=== PATIENT | female | born 1975 | race Caucasian/White ===

== ENCOUNTER 2018-05-16 09:42 | Observation (INO) | payer BC ==
[2018-05-16] MEDS ORDERED: NS 0.9% 1000 ML** 1,000 ML IV ONE (09:53)
[2018-05-16] MEDS ORDERED: fentaNYL* 50 MCG/ML 2 ML VIAL (100 MCG VIAL) IV SLOW PU ONE (09:53)
[2018-05-16] MEDS ORDERED: diPHENhydraMINE IV* 50 MG/ML 1 ml VIAL (BENADRYL) IV ONE (09:54)
--- NOTE | 2018-05-16 10:03 | ED ---
GI/ HPI - HPI Summary HPI Summary: Pt is a 42 y/o F presenting to the ED with a chief complaint of lower extremity pain. The pt is coming from a doctors appointment where she was found to have kidney stones in her R ureter. She reports fever, nausea, vomiting, and pain that is temporarily made better by movement. She thought she had the flu this morning, and when she was at her appointment they took an average of three temperatures at 100.1. She has a hx of HTN, GERD, and medullary spongey kidneys. - History of Current Complaint Chief Complaint: EDFlankPain Time Seen by Provider: 05/16/18 09:47 Stated Complaint: KIDNEY PAIN PER PT Hx Obtained From: Patient Onset/Duration: Started Weeks Ago, Still Present Timing: Constant, Lasting Weeks Severity: Moderate Current Severity: Severe Pain Intensity: 8 Location of Pain: Other - "kidneys" Pain Characteristics: Cramping Associated Signs and Symptoms: Positive: Back Pain - kidneys, Nausea, Vomiting, Fever Aggravating Factor(s): Nothing Alleviating Factor(s): Movement - Allergy/Home Medications Allergies/Adverse Reactions: Allergies Allergy/AdvReac Type Severity Reaction Status Date / Time No Known Allergies Allergy Verified 10/25/15 11:35 PMH/Surg Hx/FS Hx/Imm Hx Previously Healthy: No Endocrine/Hematology History: Denies: Hx Anticoagulant Therapy, Hx Diabetes, Hx Thyroid Disease Cardiovascular History: Reports: Hx Hypertension Denies: Hx Angina, Hx Congestive Heart Failure, Hx Coronary Artery Disease, Hx Hypercholesterolemia, Hx Myocardial Infarction, Hx Pacemaker/ICD, Hx Valvular Heart Disease Respiratory History: Denies: Hx Asthma, Hx Chronic Obstructive Pulmonary Disease (COPD) History: Reports: Hx Kidney Stones, Other Problems/Disorders - medullary spongey kidneys Neurological History: Reports: Hx Migraine Denies: Hx Dementia, Hx Seizures Psychiatric History: Reports: Hx Substance Abuse - smoke - Surgical History Surgery Procedure, Year, and Place: tubal. multiple lithotripsy for kidney stones. root canal - Immunization History Date of Influenza Vaccine: Nov 2017 Immunizations Up to Date: Yes Infectious Disease History: No Infectious Disease History: Denies: Hx Hepatitis, Hx Human Immunodeficiency Virus (HIV), Traveled Outside the [place] in Last 30 Days - Family History Known Family History: Positive: Hypertension, Other - TIA and no aneurism - Social History Alcohol Use: Weekly Hx Substance Use: No Substance Use Type: Reports: None Hx Tobacco Use: Yes Smoking Status (MU): Light Every Day Tobacco Smoker Review of Systems Positive: Fever Positive: Vomiting, Nausea Positive: Myalgia All Other Systems Reviewed And Are Negative: Yes Physical Exam - Summary Physical Exam Summary: GENERAL: Patient is a well-developed and nourished female who is lying in the stretcher. She appears uncomfortable secondary to pain. Patient is not in any acute respiratory distress. HEAD AND FACE: Normocephalic EYES: PERRLA, EOMI x 2. EARS: Hearing grossly intact. MOUTH: Oropharynx within normal limits. NECK: Supple, trachea is midline, no adenopathy, no JVD, no carotid bruit. CHEST: Symmetric, no tenderness at palpation LUNGS: Clear to auscultation bilaterally. No wheezing or crackles. CVS: Regular rate and rhythm, S1 and S2 present, no murmurs or gallops appreciated. ABDOMEN: Soft, non-tender. Bowel sounds are normal. No abdominal abnormal pulsations. EXTREMITIES: Full ROM in all major joints, no edema, no cyanosis or clubbing. NEURO: Alert and oriented x 3. No acute neurological deficits. Speech is normal and follows commands. SKIN: Dry and warm Triage Information Reviewed: Yes Vital Signs On Initial Exam: Initial Vitals Temp Pulse Resp BP Pulse Ox 98.1 F 99 20 168/117 100 05/16/18 09:42 05/16/18 09:42 05/16/18 09:42 05/16/18 09:42 05/16/18 09:42 Vital Signs Reviewed: Yes Diagnostics - Vital Signs Vital Signs Temp Pulse Resp BP Pulse Ox 05/16/18 09:42 98.1 F 99 20 168/117 100 - Laboratory Lab Statement: Any lab studies that have been ordered have been reviewed, and results considered in the medical decision making process. - Radiology Abd x-ray Radiology Interpretation Completed By: Radiologist Summary of Radiographic Findings: Calcifications overlying upper pole right kidney lower pole left kidney as well as the right renal hilum and likely right proximal ureter. ED physician has reviewed this report. GIGU Course/Dx - Course Course Of Treatment: Pt is a 42 y/o F presenting to the ED with a chief complaint of lower extremity pain. The pt is coming from a doctors appointment where she was found to have kidney stones in her R ureter. She reports fever, nausea, vomiting, and pain that is temporarily made better by movement. Spoke with Dr. Glass who requested the pt get a repeat urine sample and test her KUB. He would like the patient to be admitted. The CT abd/pelv from her doctors office showed the followin. Multiple right ureteral stones measuring up to 1cm as above with moderate right hydronephrosis. 2. Bilateral nephrolithiasis. Upon examination, the pt is uncomfortable secondary to pain, o/w normal. Abd x- ray shows calcifications overlying upper pole right kidney lower pole left kidney as well as the right renal hilum and likely right proximal ureter. As of 1009, the pt is accepted for admission under Dr. Canas. - Diagnoses Provider Diagnoses: Kidney calculi Discharge - Sign-Out/Discharge Documenting (check all that apply): Patient Departure - Discharge Plan Condition: Stable Disposition: ADMITTED TO [facility] - Billing Disposition and Condition Condition: STABLE Disposition: Admitted to [facility] - Attestation Statements Document Initiated by Scribe: Yes Documenting Scribe: Leann Valdes Provider For Whom Kingae is Documenting (Include Credential): Hector Madrigal MD. Scribe Attestation: ILeann, scribed for Hector Madrigal MD. on 05/16/18 at 1321. Scribe Documentation Reviewed: Yes Provider Attestation: The documentation as recorded by the scribe, Leann Valdes accurately reflects the service I personally performed and the decisions made by , Jonathon Madrigal MD. Status of Scribe Document: Viewed Consult Consult: 101 - Spoke with Dr. Canas who accepts the patient for admission.
[2018-05-16] MEDS ORDERED: Gentamicin ADULT (*) 160 MG in NS 0.9% 100 ML* 100 ML IVPB ONE (10:20)
[2018-05-16 10:47] LABS: Urine Appearance Cloudy; Urine Bacteria Absent (Absent); Urine Bilirubin Negative (Negative); Urine Blood 3+ (Negative); Urine Color Yellow; Urine Glucose Negative (Negative); Urine Ketones Negative (Negative); Urine Nitrite Negative (Negative); Urine Protein Negative (Negative); Urine Red Blood Cell 3+(>10/hpf) (Absent); Urine Specific Gravity 1.013 (1.010-1.030); Urine Squamous Epithelial Cell Present (Absent); Urine Urobilinogen Negative (Negative); Urine White Blood Cell 2+(11-20/hpf) (Absent)
[2018-05-16] MEDS ORDERED: Lactated Ringers 1000 ML Bag* 1,000 ML IV SCH ×2 (11:00→12:00)
[2018-05-16] MEDS ORDERED: HYDROmorphone INJ1* 1 MG/ML SYRINGE IV SLOW PU ONE (11:02)
[2018-05-16] MEDS ORDERED: Buffered Lidocaine 1% SYRIN* 1 ML/SYRINGE INTRADERM ONE (11:15)
[2018-05-16] MEDS ORDERED: Famotidine TAB* 20 MG PO ONE (11:15)
[2018-05-16] MEDS ORDERED: Acetaminophen TAB* 325 MG PO PRN (11:19)
[2018-05-16] MEDS ORDERED: Ondansetron INJ* 2 MG/ML VIAL IV PRN (11:19)
[2018-05-16] MEDS ORDERED: HYDROmorphone INJ* 0.5 MG/0.5 ML SYRINGE IV SLOW PU PRN (11:22)
[2018-05-16] MEDS ORDERED: Propofol* 10 MG/ML 20 ML BTL ONE ×2 (11:39→11:42)
[2018-05-16] MEDS ORDERED: Lidocaine 2% PF * 5 ML VIAL ONE ×2 (11:40→12:07)
[2018-05-16] MEDS ORDERED: Midazolam* 1 MG/ML 2 ML VIAL (2 MG) ONE (11:40)
[2018-05-16] MEDS ORDERED: fentaNYL* 50 MCG/ML 2 ML VIAL (100 MCG VIAL) ONE (11:40)
[2018-05-16] MEDS ORDERED: Iohexol 180 (CONTRAST) 10 ML SDV IV ONE (11:53)
[2018-05-16] MEDS ORDERED: Chloroprocaine 2%* 20 ML VIAL ONE (12:07)
[2018-05-16] MEDS ORDERED: Naloxone* 0.4 MG/ML 1 ML VIAL IV PRN (12:32)
[2018-05-16] MEDS ORDERED: Ondansetron ODT TAB* 4 MG PO PRN (12:32)
[2018-05-16] MEDS ORDERED: oxyCODONE TAB* 5 MG TAB PO PRN (12:32)
[2018-05-16] MEDS ORDERED: fentaNYL* 50 MCG/ML 2 ML VIAL (100 MCG VIAL) IV PRN (12:32)
[2018-05-16 14:13] VITALS: BP 135/86
--- NOTE | 2018-05-16 16:50 | HP ---
CC: Dr. Lazaro Perez; Dr. Jesse Powers * ADMISSION HISTORY AND PHYSICAL: DATE OF ADMISSION: 05/16/18 PRIMARY CARE PROVIDER: Dr. Lazaro Perez. MY ATTENDING WHILE IN THE HOSPITAL: Dr. Radha Canas.* (DICTATED BY GENET TAPIA) CONSULTING UROLOGIST: Dr. Jesse Powers. CHIEF COMPLAINT: Muscle aches, malaise, fevers and chills x2 days. HISTORY OF PRESENT ILLNESS: Ms. Smith is a 42-year-old female with a past medical history significant for medullary sponge kidney and recurrent nephrolithiasis, hypertension, who presented this morning to the [facility] Emergency Department where she worked with 2 days of muscle aches, fevers and chills. The patient there received ceftriaxone and Toradol, which improved her pain and had a CT scan of her abdomen, which showed multiple right renal stones with moderate right hydronephrosis. The patient has been having pain consistent with her previous stones including abdominal pain and cramping for the past month. The patient previously went for medical care, got Toradol and this entirely relieved her pain. The patient has not had any blood in her urine or any dysuria. The patient describes her pain as all over as opposed to being localized to her abdomen or back. The patient has had 4 previous lithotripsies with stents placed. The patient has been having palpitations, which is worse with pain and is chronic. The patient has occasional dizziness on standing. The patient had no documented fevers, but again has been having fevers and chills as well as nausea and vomiting. The patient denies abdominal pain, chest pain, or shortness of breath. The patient was referred to [facility] Emergency Department due to her familiarity with Dr. Powers for presumed stent placement and we were asked to evaluate the patient for admission to the hospital. PAST MEDICAL HISTORY: 1. Hypertension. 2. GERD. 3. Medullary sponge kidney. 4. Palpitations due to SVT, recurrent nephrolithiasis. 5. History of Lyme disease. PAST SURGICAL HISTORY: 1. Multiple renal stents. 2. Tubal ligation. MEDICATIONS: 1. Metoprolol succinate 50 mg p.o. daily. 2. Norvasc 40 mg p.o. daily. 3. Prilosec 20 mg p.o. daily. 4. Multivitamin 1 tablet p.o. daily. 5. Vitamin D 4000 units p.o. daily. ALLERGIES: No known drug allergies. FAMILY HISTORY: The patient's mother and father both have heart disease and diabetes. SOCIAL HISTORY: The patient is a light tobacco smoker and still smokes. The patient occasionally uses alcohol and denies illicit drug use. 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 The patient has a male partner and her surrogate decision maker will be her mother, Walter Penaloza. REVIEW OF SYSTEMS: A 14-point review of systems was reviewed with the patient and is negative except as above in the HPI. PHYSICAL EXAMINATION GENERAL: The patient is a 42-year-old female who appears stated age and is sitting in bed in moderate distress from pain. VITAL SIGNS: At the time of evaluation, temperature 98.1, pulse rate 99, respiratory rate 20, oxygen saturation 100% on room air, blood pressure 160/117. HEENT: Head is normocephalic, atraumatic. Sclerae anicteric. No conjunctival injection. Nasal mucosa moist. Oral mucosa moist. No pharyngeal erythema, discharge, or exudate. NECK: Supple, nontender. No lymphadenopathy. No carotid bruits auscultated. No JVD. RESPIRATORY: Clear to auscultation bilaterally. No wheezes, rales, rhonchi. Good air exchange bilaterally. CARDIAC: Regular rate and rhythm. No clicks, murmurs, gallops, or rubs. Pulses 2+ in bilateral dorsalis pedis, posterior tibialis, and radial areas. ABDOMEN: Soft, nontender, nondistended. Bowel sounds present and normoactive in all 4 quadrants. No hepatosplenomegaly. No abdominal bruits auscultated. No hepatojugular reflux. GENITOURINARY: Right Sided flank and CVA tenderness. NEUROLOGIC: Cranial nerves II through XII intact. No focal deficits. Alert and oriented x3. PSYCHIATRIC: Pleasant and cooperative. DIAGNOSTIC STUDIES/LAB DATA: Laboratory data from [facility]: White blood cell count 11.3, hemoglobin 12.8, platelet count 304. Sodium 138, potassium 3.8, chloride 101, carbon dioxide 25, anion gap 12, glucose 125, bilirubin 0.4, BUN 21, creatinine 0.9. Calcium 9.0, alkaline phosphatase 70, amylase 30, lipase 26. Protein 7.4, albumin 4.2. Urine shows hazy, positive blood, positive leukocyte esterase, positive white blood cells and red blood cells, and positive bacteria. Influenza A and B negative. Studies: The CT read as multiple right ureter stones measuring up to 1 cm and moderate right hydronephrosis, bilateral nephrolithiasis, 1 x 0.7 cm calculus in the right UPJ. ASSESSMENT AND PLAN: Impression: Ms. Smith is a 42-year-old female with past medical history significant for medullary sponge kidney, nephrolithiasis, and supraventricular tachycardia, who presents to the emergency department with symptoms consistent with the kidney stones complicated by a urinary tract infection. The patient received ceftriaxone and a CT at outside hospital and is referred for stent placement with Dr. Powers, who has done her previous stent placements. 1. Right-sided multiple nephrolithiasis. The patient has CT evidence of nephrolithiasis and pain consistent with this. The patient's pain has been controlled with Dilaudid. The patient received ceftriaxone at outside hospital and gentamicin in this hospital. The patient will be continued on ceftriaxone if she remains inpatient, but if the patient is able to be discharged after this procedure, the patient will be continued on appropriate oral antibiotic therapy. The patient will be taken to the OR this morning with Dr. Powers for stent placement. The patient will likely need lithotripsy after that given the size of the patient's ureteral stone. The patient received fluids both at the outside hospital and here, these will be continued. We will continue the patient's metoprolol succinate perioperatively. Her blood pressure is currently within normal limits. The patient is not septic. We will hold the patient's Norvasc. 2. Hypertension. Continue metoprolol, hold Norvasc as well. 3. Medullary sponge kidney. The patient has a moderately elevated creatinine at 0.9, possible medullary sponge kidney. Given the patient's hydronephrosis, we will try to avoid nephrotoxins. We will not continue the patient's gentamicin at this time unless absolutely indicated. We will adequately hydrate the patient and avoid Toradol for pain control. 4. History of supraventricular tachycardia. The patient is borderline tachycardic, likely related to her pain. The patient was previously evaluated with cardiac stress test and follows with cardiac nurse practitioner. She should follow up again outpatient. This does not pose a significant risk with minor surgery. 5. DVT prophylaxis. The patient low risk. SCDs in the postoperative period and encourage ambulation. 6. Gastroesophageal reflux disease. Continue Prilosec. The patient is given famotidine. 7. FEN. The patient will be n.p.o. for this procedure and get fluids per postoperative protocol. 8. Disposition. The patient admitted to observation. The patient may be able to be discharged from the PACU depending on her clinical state. TIME SPENT: Approximately 45 minutes spent on the admission of this patient, 20 of which was spent in [id number] with the patient obtaining history and physical and discussion of treatment plan. Plan was discussed with my attending, Dr. Radha Canas; she is in agreement. GENET TAPIA [id number]/CPS #: [id number] MTDD
[2018-05-16] MEDS ORDERED: Metoprolol Succinate XL TAB* 50 MG PO SCH (21:00)
--- NOTE | 2018-05-16 22:18 | OP ---
CC: Dr. Lazaro Perez * DATE OF OPERATION: 05/16/18 - ROOM #335 DATE OF : 71 SURGEON: Checo Glass MD ANESTHESIOLOGIST: Dr. Scott. ANESTHESIA: Spinal. PRE-OP DIAGNOSES: 1. Right hydronephrosis. 2. Right ureteral calculi. 3. Right bilateral renal calculi. POST-OP DIAGNOSIS: OPERATIVE PROCEDURE: Cystoscopy right retrograde pyelogram, right ureteral calculus manipulation and right stent insertion. COMPLICATIONS: None. POSTOPERATIVE CONDITION: Stable. STENT USED: 8-Brazilian stent right ureter. OPERATIVE FINDINGS: Right hydronephrosis. INDICATIONS: Merissa Smith is a 42-year-old lady with a history of recurrent renal calculi. She had been earlier worked up at [facility] and a CT scan had revealed moderate right hydronephrosis with a 1 cm calculus at the right ureteropelvic junction and a 5 mm calculus in the right proximal ureter and an additional 3 mm calculus in the area of the right renal pelvis. In addition, she also has a left renal calculus. She is being brought in for urgent right stent insertion and to be followed in the near future by lithotripsy. DESCRIPTION OF PROCEDURE: After induction of spinal anesthesia, the patient was placed in dorsal lithotomy position. Sequential compression devices were in place and functioning. Initial cystoscopy revealed mild chronic inflammatory changes in the bladder from prior infections. There was no evidence of any suspicious bladder lesions. Right retrograde pyelogram revealed right hydronephrosis. An open-ended catheter was advanced under fluoroscopic monitoring and the calculus at the ureteropelvic junction was carefully manipulated proximally. Once this was done, urine could be seen draining freely from the right kidney into the bladder. An 8-Brazilian stent was introduced and positioned under fluoroscopy with good proximal and distal positioning obtained. A Greene catheter was placed for temporary bladder drainage. The patient tolerated the procedure satisfactorily and was transferred back to the recovery area in stable condition. [id number]/CPS #: [id number] MTDD
--- NOTE | 2018-05-16 23:40 | DS ---
CC: Dr. Lazaro Perez; Dr. Checo Glass, Urology * DISCHARGE SUMMARY: DATE OF ADMISSION: 05/16/18 DATE OF DISCHARGE: PRIMARY CARE PROVIDER: Dr. Lazaro Perez. MY ATTENDING WHILE IN THE HOSPITAL: Dr. Radha Canas.* (DICTATED BY GENET TAPIA) PRIMARY DISCHARGE DIAGNOSES: 1. Right-sided nephrolithiasis with hydronephrosis, status post stenting. 2. Urinary tract infection. SECONDARY DISCHARGE DIAGNOSES: 1. High blood pressure. 2. Gastroesophageal reflux disease. 3. Medullary sponge kidney. 4. History of supraventricular tachycardia. 5. History of Lyme disease. STUDIES DONE WHILE IN THE HOSPITAL: 1. Abdomen x-ray from 05/16/18 read as calcifications overlying the right upper pole of kidney, lower pole of left kidney, as well as right renal hilum, likely proximal right ureter. 2. Retrograde pyelogram read as placement of right ureteral stent. MEDICATIONS AT DISCHARGE: 1. Troy-3 DHA EPA fish oil 1 tab p.o. daily. 2. Turmeric 500 mg p.o. daily . 3. He used to take CoQ10 200 mg p.o. daily. 4. Multivitamin 1 tab p.o. daily. 5. Omeprazole 20 mg p.o. daily. 6. Metoprolol succinate 50 mg p.o. at bedtime. 7. Amlodipine 5 mg p.o. daily. 8. Valacyclovir 1 mg p.o. p.r.n. 9. Magnesium oxide 500 mg p.o. daily. 10. Clobetasol 50 mg p.o. topical as needed. 11. Tylenol 650 mg p.o. q.6 hours as needed. 12. Ciprofloxacin 750 mg p.o. b.i.d. 13. Zofran 4 mg p.o. q.6 hours as needed. 14. Oxycodone 5 mg p.o. q.6 hours as needed. New medications at discharge: 1. Tylenol. 2. Ciprofloxacin. 3. Zofran. 4. Oxycodone. HOSPITAL COURSE: This is a brief summary of the patient's presentation. For more details, please refer to the history and physical from this author early in the day on 05/16/18. In brief, the patient is a 42-year-old white female with past medical history significant for above, who had approximately 1 month of intermittent flank pain concerning to her for a renal stone that she feels at some point she passed. The patient, however, 2 days before admission began to have muscle aches, malaise, fevers, and chills. The patient went to [place] [facility] and had a CT of her abdomen which showed nephrolithiasis and hydronephrosis. The patient was referred to the [facility] Emergency Department due to her familiarity with Dr. Checo Glass. She was taken from the emergency department to the OR for right-sided stent placement with resolution of her obstruction. The patient in the PACU felt well with pain in her right flank consistent with previous stent placement. The patient had no pus behind her stone. The patient had no vital sign abnormalities. No fevers. No tachycardia. The patient deemed stable for discharge by her urologist and was discharged from the PACU on 05/16/18. DISCHARGE PLAN: The patient will be discharged to home. The patient will have oxycodone, Zofran ODT, as well as ciprofloxacin for a total of 6 more days. The patient received ceftriaxone and gentamicin on 05/16/18. The patient to start her ciprofloxacin on 05/17/18. The patient will follow up with her primary care provider in 1 week for general medical management and to ensure continued improvement of her symptoms. The patient should follow up with Dr. Glass in 3 weeks or as scheduled for lithotripsy. The patient to return to the hospital for high fevers, chest pain, shortness of breath, passing out, or other alarming symptoms. TIME SPENT: Approximately 30 minutes was spent on the discharge of this patient , 15 of which was spent [id number] with the patient obtaining history and physical and discussing treatment plan. Plan was discussed with my attending, Dr. Radha Canas, and she is in agreement. GENET TAPIA [id number]/CPS #: [id number] MTDD
[2018-05-17] MEDS ORDERED: cefTRIAXone(*) 1 GM in NS 0.9% 50 ML* 50 ML IVPB SCH (06:00)
== END 2018-05-16 14:30 | disposition home or self-care (01) ==
LOC: ED 09:42 → SSU 11:19
PROVIDERS: ADMIT Internal Medicine; ATTEND Internal Medicine
DX: N13.2 Hydronephrosis with renal and ureteral calculous obstruction (principal); N39.0 Urinary tract infection, site not specified; I10 Essential (primary) hypertension; K21.9 Gastro-esophageal reflux disease without esophagitis; Q61.5 Medullary cystic kidney; I47.1 Supraventricular tachycardia; Z86.19 Personal history of other infectious and parasitic diseases; M54.9 Dorsalgia, unspecified; F17.210 Nicotine dependence, cigarettes, uncomplicated
CPT/HCPCS: 74018; 74420; 81003; 81015; 87086; 96374; 96375; 99283; C1876; G0378; J0696; J1170; J1200; J1580; J2250; J2400; J2704; J3010

== ENCOUNTER 2018-05-31 11:41 | Day surgery (SDC) | payer BC ==
[~2018-05-31 11:41] MED LIST: Acetaminophen TAB* 325 MG PO ONE; Buffered Lidocaine 1% SYRIN* 1 ML/SYRINGE INTRADERM ONE; Lactated Ringers 1000 ML Bag* 1,000 ML IV SCH; cefTRIAXone(*) 2 GM in NS 0.9% 100 ML* 100 ML IVPB ONE
[2018-05-31] MEDS ORDERED: Acetaminophen TAB* 325 MG ONE (12:37)
[2018-05-31] MEDS ORDERED: Ondansetron INJ* 2 MG/ML VIAL IV PRN (12:45)
[2018-05-31] MEDS ORDERED: PROCHLORPERAZINE INJ 5 MG/ML 2 ML VIAL IV PRN (12:45)
[2018-05-31] MEDS ORDERED: HYDROcodone/ACETAMIN 5-325 MG* 1 TAB PO PRN ×2 (12:45)
[2018-05-31] MEDS ORDERED: DiMENhydriNATE IV* 50 MG/ML VIAL IV PUSH PRN (12:45)
[2018-05-31] MEDS ORDERED: Naloxone* 0.4 MG/ML 1 ML VIAL IV PRN (12:45)
[2018-05-31] MEDS ORDERED: fentaNYL* 50 MCG/ML 2 ML VIAL (100 MCG VIAL) IV PRN (12:45)
[2018-05-31] MEDS ORDERED: Levalbuterol 0.63MG/3ML NEB* UNIT OF USE INH PRN (12:45)
[2018-05-31] MEDS ORDERED: fentaNYL* 50 MCG/ML 2 ML VIAL (100 MCG VIAL) ONE ×2 (12:56→14:31)
[2018-05-31] MEDS ORDERED: Midazolam* 1 MG/ML 2 ML VIAL (2 MG) ONE (12:56)
[2018-05-31] MEDS ORDERED: Famotidine IV* 10 MG/ML 2 ML (20 mg) ONE (13:30)
[2018-05-31] MEDS ORDERED: Lidocaine 2% PF * 5 ML VIAL ONE (14:08)
[2018-05-31] MEDS ORDERED: Dexamethasone IV* 4 MG/ML 1 ML (4 MG) ONE ×2 (14:08→14:30)
[2018-05-31] MEDS ORDERED: Propofol* 10 MG/ML 20 ML BTL ONE (14:08)
[2018-05-31] MEDS ORDERED: Scopolamine 1.5 mg* PATCH ONE (14:08)
[2018-05-31] MEDS ORDERED: Furosemide IV* 10 MG/ML 2 ML VIAL (20 MG) ONE (14:08)
[2018-05-31] MEDS ORDERED: Ondansetron INJ* 2 MG/ML VIAL ONE (14:08)
[2018-05-31] MEDS ORDERED: PROCHLORPERAZINE INJ 5 MG/ML 2 ML VIAL ONE (14:30)
[2018-05-31] MEDS ORDERED: oxyCODONE/Acetamin 5/325 MG* TAB ONE (14:49)
[2018-05-31 14:52] VITALS: BP 117/94
--- NOTE | 2018-05-31 21:37 | OP ---
DATE OF OPERATION: 05/31/18 - [facility] DATE OF : 71 SURGEON: Dr. Glass. ANESTHESIOLOGIST: Dr. Yancey. ANESTHESIA: General. PRE-OP DIAGNOSIS: Right renal calculi. POST-OP DIAGNOSIS: Right renal calculi. OPERATIVE PROCEDURE: Shockwave lithotripsy of right renal calculi. COMPLICATIONS: None. INDICATIONS: Merissa Smith is a 42-year-old lady who had undergone right stent insertion for an obstructing calculus in the right proximal ureter. In addition , she has other renal calculi noted on her preoperative CT scan and is now being brought in for shockwave lithotripsy. POSTOPERATIVE CONDITION: Stable. DESCRIPTION OF PROCEDURE: After induction of general anesthesia, the patient was placed on the lithotripsy table in supine position. The dominant calculus was in the mid to lower pole area of right kidney with an additional calculus adjacent to it. Shockwave lithotripsy was commenced at a rate of 60 shocks per minute. After initial 300 shocks, there was a pause in lithotripsy for several minutes in an effort to minimize any potential trauma to the kidney. Lithotripsy was then resumed and a total of 1200 shocks were used on the dominant calculus. Smaller calculus was localized with fluoroscopy and this was treated with approximately 600 shocks for a total of 1800 shocks during the treatment. The patient tolerated the procedure satisfactorily and was transferred back to the recovery area in stable condition. [id number]/CPS #: [id number] MTDD
== END 2018-05-31 15:39 | disposition home or self-care (01) ==
LOC: OR 11:41
PROVIDERS: ATTEND Urology
DX: N20.0 Calculus of kidney (principal); I10 Essential (primary) hypertension; Q61.5 Medullary cystic kidney; I47.1 Supraventricular tachycardia; K21.9 Gastro-esophageal reflux disease without esophagitis; Z72.0 Tobacco use
CPT/HCPCS: 74018; A9270-GY; J0696; J0780; J1100; J1940; J2250; J2405; J2704; J3010

== ENCOUNTER → 2018-09-22 07:25 | Day surgery (SDC) | payer BC ==
--- NOTE | 2018-09-20 10:25 | HP ---
CC: Dr. Perez; Dr. Glass ADMITTING HISTORY AND PHYSICAL: DATE OF ADMISSION: 09/22/18 ADMITTING DIAGNOSIS: Bilateral ureteral calculi. PLANNED PROCEDURE: Left ureteroscopy, possible laser and stent insertion, and possible right uretero scopy and stone removal. SURGEON: Dr. Glass. HISTORY OF PRESENT ILLNESS: Merissa Smith is a 42-year-old lady with a history of recurrent renal and ureteral calculi. She was recently evaluated and noted to have what appeared to be 2 calculi in the left distal ureter, one measuring about 8.4 mm and one measuring 9.8 mm. In addition, she has a 5-mm calculus in the right distal ureter. PAST MEDICAL HISTORY: Significant for: 1. Recurrent renal calculi. 2. Medullary sponge kidney. 3. Hypertension. 4. History of Lyme disease. 5. History of palpitations (SVT). 6. GERD. PAST SURGICAL HISTORY: Significant for tubal ligation and multiple procedures for stones including l ithotripsy and stent insertion and ureteroscopy. MEDICATIONS: On admission, include: 1. Metoprolol 50 mg daily. 2. Norvasc 40 mg daily. 3. Prilosec 20 mg daily. 4. Multivitamins. 5. Vitamin D daily. ALLERGIES: No known drug allergies. FAMILY HISTORY: Negative for stones. SOCIAL HISTORY: She is a longtime smoker and is still smoking. REVIEW OF SYSTEMS: She denies any chest pain or shortness of breath. There is no history of diabete s mellitus. PHYSICAL EXAMINATION GENERAL: Reveals a pleasant, uncomfortable appearing middle-aged lady. VITAL SIGNS: Blood pressure is 134/92, pulse 86 per minute and regular, temperature 97.1, oxygen sat uration 96% on room air. LUNGS: Clear bilaterally. CARDIOVASCULAR: Regular rate and rhythm. S1, S2. ABDOMEN: Soft with mild bilateral flank tenderness. IMPRESSION: A 42-year-old lady with 2 large calculi in the left distal ureter and a smaller calculu s in the right distal ureter. PLAN: Planned procedure is left ureteroscopy, possible laser and stent insertion and possible right ureteroscopy and stone removal (depending on whether or not she has passed the stone from the right s darryl prior to the scheduled surgery). [id number]/[facility] #: [id number]
[~2018-09-22 07:25] MED LIST changes: +Acetaminophen TAB* 325 MG ONE; +Bupivacaine 0.5% SDV PF* 30ML VIAL ONE; +Dexamethasone IV* 4 MG/ML 1 ML (4 MG) ONE; +DiMENhydriNATE IV* 50 MG/ML VIAL IV PUSH PRN; +Famotidine IV* 10 MG/ML 2 ML (20 mg) ONE; +Furosemide IV* 10 MG/ML 2 ML VIAL (20 MG) ONE; +Gabapentin CAP(*) 300 MG ONE; +Gabapentin CAP(*) 300 MG PO ONE; +Gentamicin ADULT (*) 160 MG in NS 0.9% 100 ML* 100 ML IVPB ONE; +HYDROcodone/ACETAMIN 5-325 MG* 1 TAB PO PRN; +Iohexol 180 (CONTRAST) 10 ML SDV IV ONE; +Lidocaine 2% PF * 5 ML VIAL ONE; +Midazolam* 1 MG/ML 2 ML VIAL (2 MG) ONE; +Naloxone* 0.4 MG/ML 1 ML VIAL IV PRN; +Ondansetron INJ* 2 MG/ML VIAL IV PRN; +Ondansetron INJ* 2 MG/ML VIAL ONE; +PROCHLORPERAZINE INJ 5 MG/ML 2 ML VIAL IV PRN; +PROCHLORPERAZINE INJ 5 MG/ML 2 ML VIAL ONE; +Propofol* 10 MG/ML 20 ML BTL ONE; +cefTRIAXone(*) 2 GM ADDV.VIAL IVPB ONE; -cefTRIAXone(*) 2 GM in NS 0.9% 100 ML* 100 ML IVPB ONE; +diPHENhydraMINE IV* 50 MG/ML 1 ml VIAL (BENADRYL) IV PRN; +diPHENhydraMINE IV* 50 MG/ML 1 ml VIAL (BENADRYL) ONE; +fentaNYL* 50 MCG/ML 2 ML VIAL (100 MCG VIAL) IV PRN; +fentaNYL* 50 MCG/ML 2 ML VIAL (100 MCG VIAL) ONE
--- NOTE | 2018-09-22 12:47 | OP ---
CC: Dr. Lazaro Perez * DATE OF OPERATION: 09/22/18 - [facility] DATE OF : 71 SURGEON: Checo Glass MD. PRE-OP DIAGNOSIS: Bilateral ureteral calculi. POST-OP DIAGNOSES: Right ureteral calculi and right hydronephrosis. OPERATIVE PROCEDURES: 1. Cystoscopy, left retrograde pyelogram, left ureteroscopy, and left pyeloscopy. 2. Right retrograde pyelogram, right ureteroscopy, and laser lithotripsy of right ureteral calculi and removal of calculi fragments, and right stent insertion. STENT USED: A 7-Yemeni stent, right ureter. INDICATIONS: Merissa Smith is a 42-year-old lady with recurrent bilateral renal and ureteral calculi who was recently noted to have bilateral ureteral calculi. OPERATIVE FINDINGS: 1. No calculi seen in left distal, mid or proximal ureter or left renal pelvis. 2. Two calculi, right distal ureter including a fairly large; approximately 1 cm; calculus with surrounding edema and inflammation. POSTOPERATIVE CONDITION: Stable. DESCRIPTION OF PROCEDURE: After induction of spinal anesthesia, the patient was placed in the dorsal lithotomy position. Sequential compression devices were in place and functioning. Initial cystoscopy revealed some hyperemic mucosa surrounding the left orifice. The remainder of the bladder was unremarkable. A guidewire was introduced into the left ureter. Retrograde pyelogram revealed no evidence of hydronephrosis on the left. A 6-Yemeni semi- rigid urethroscope was introduced and advanced under direct vision. The entire distal, mid and proximal left ureter were visualized and I did not see any calculi in the ureter. The ureteroscope was advanced into the renal pelvis and left pyeloscopy was performed. Again the renal pelvis and the openings of the major calyces were unremarkable. The ureteroscope was carefully withdrawn under direct vision and all of the contrast that had been instilled was noted to flush out of the ureter. Next, attention was directed to the right side. Right retrograde pyelogram revealed fullness of the right collecting system. A 6-Yemeni semi-rigid ureteroscope was introduced and advanced under direct vision. In the distal right ureter, about 3 to 4 cm from the ureterovesical junction, there was an approximately 5 mm calculus. This was engaged and removed into the bladder from where it was later retrieved. Next, the ureteroscope was advanced more proximally, and further up in the ureter there was a fairly large, almost 1 cm calculus, which was noted to be impacted with surrounding edema and inflammation. This was too big to extract without fragmentation, so I used a 550 micron holmium laser to break it up into multiple smaller fragments, all of which were successfully removed. The ureteroscope was advanced into the proximal ureter and into the renal pelvis to make sure there were no additional fragments noted, and none was seen. A 16-Yemeni Greene was placed for temporary bladder drainage. The patient tolerated the procedure satisfactorily and was transferred back to the recovery area in stable condition. [id number] #: [id number] MTDD
[2018-09-22 13:31] VITALS: BP 109/75
== END | disposition home or self-care (01) ==
LOC: OR 07:25
PROVIDERS: ATTEND Urology
DX: N13.2 Hydronephrosis with renal and ureteral calculous obstruction (principal); Q61.5 Medullary cystic kidney; I10 Essential (primary) hypertension; K21.9 Gastro-esophageal reflux disease without esophagitis; I47.1 Supraventricular tachycardia; Z72.0 Tobacco use
CPT/HCPCS: 74420; 82365; 88300; A9270-GY; C1876; J0696; J0780; J1100; J1200; J1580; J1940; J2250; J2405; J2704; J3010; J3490

== ENCOUNTER 2019-09-04 21:55 | Inpatient (IN) ==
[2019-09-04] MEDS ORDERED: Ondansetron 4 mg VIAL 2 MG/ML 2 ml VIAL IV ONE (22:24)
[2019-09-04] MEDS ORDERED: NS 0.9% 1000 ml BAG 2,000 ML IV ONE (22:24)
[2019-09-04] MEDS ORDERED: Morphine 4 MG/ML VIAL (1 ml) IV ONE (22:24)
[2019-09-04] MEDS ORDERED: Morphine 4 MG/ML VIAL (1 ml) IV PRN (22:24)
[2019-09-04 22:49] LABS: ABS Eosinophils 0.1 10^3/ul (0-0.6); ABS Lymphocytes 0.3 10^3/ul (1.0-4.8); ABS Monocytes 0.6 10^3/ul (0-0.8); ABS Neutrophils 9.8 10^3/ul (1.5-7.7); Eosinophil % 0.6 %; Hematocrit 39 % (35-47); Hemoglobin 13.4 g/dL (12.0-16.0); Lymphocyte % 2.7 %; Mean Corpuscular HGB Conc 35 g/dL (31-36); Mean Corpuscular Hemoglobin 32 pg (27-31); Mean Corpuscular Volume 91 fL (80-97); Mean Platelet Volume 8.4 fL (7.4-10.4); Platelet Count 237 10^3/uL (150-450); Red Blood Count 4.24 10^6 /uL (3.70-4.87); Red Cell Distribution Width 14 % (10-15); White Blood Count 10.8 10^3/uL (3.5-10.8)
[2019-09-04 22:56] LABS: INR 2.16 (0.82-1.09)
[2019-09-04 23:08] LABS: Albumin 3.7 g/dL (3.2-5.2); Albumin/Globulin Ratio 1.2 (1-3); BUN/Creatinine Ratio 12.1 (8-20); C Reactive Protein 395.66 mg/L (<8.01); Calcium 9.4 mg/dL (8.6-10.3); EGFR African American 48.8 (>60); EGFR Non-African American 40.3 (>60); Globulin 3.1 g/dL (2-4); Potassium 3.5 mmol/L (3.5-5.0); Total Bilirubin 0.6 mg/dL (0.2-1.0); Total Protein 6.8 g/dL (6.4-8.9)
[2019-09-04 23:10] LABS: Troponin I 0.01 ng/mL (<0.03)
[2019-09-04] MEDS ORDERED: cefTRIAXone 1 gm/50 mL NS BAG 1 GM/50 ML BAG IV ONE (23:31)
[2019-09-05] MEDS ORDERED: Phytonadione Oral Solution 5 MG/25 ML UDC PO ONE (00:24)
[2019-09-05 00:47] LABS: Urine Appearance Turbid; Urine Bilirubin Negative (Negative); Urine Blood 3+ (Negative); Urine Color Amber; Urine Glucose Negative (Negative); Urine Ketones Trace (Negative); Urine Nitrite Positive (Negative); Urine Protein 3+(>=500 mg/dL) (Negative); Urine Specific Gravity 1.013 (1.010-1.030); Urine Urobilinogen Negative (Negative)
[2019-09-05 00:53] LABS: Urine Bacteria 1+ (Absent); Urine Red Blood Cell 3+(>10/hpf) (Absent); Urine Squamous Epithelial Cell Present (Absent); Urine White Blood Cell 3+(>20/hpf) (Absent)
[2019-09-05] MEDS ORDERED: NS 0.9% 1000 ml BAG 1,000 ML IV ONE (01:00)
[2019-09-05] MEDS ORDERED: Enoxaparin 40 MG/0.4 ML SYR SUBCUT SCH (02:00)
[2019-09-05] MEDS: Prochlorperazine 5 mg/ml 2 ml VIAL (10 mg) IV PRN ×2 (03:49→14:18)
[2019-09-05] MEDS: NS 0.9% 1000 ml BAG 1,000 ML IV SCH ×3 (04:01→23:34)
[2019-09-05 06:01] LABS: Hematocrit 31 % (35-47); Hemoglobin 10.7 g/dL (12.0-16.0); Mean Corpuscular HGB Conc 35 g/dL (31-36); Mean Corpuscular Hemoglobin 32 pg (27-31); Mean Corpuscular Volume 92 fL (80-97); Mean Platelet Volume 8.1 fL (7.4-10.4); Platelet Count 191 10^3/uL (150-450); Red Blood Count 3.35 10^6 /uL (3.70-4.87); Red Cell Distribution Width 14 % (10-15); White Blood Count 9.1 10^3/uL (3.5-10.8)
[2019-09-05 06:08] LABS: INR 2.96 (0.82-1.09)
[2019-09-05 06:37] LABS: BUN/Creatinine Ratio 12.1 (8-20); C Reactive Protein 287.53 mg/L (<8.01); Calcium 7.2 mg/dL (8.6-10.3); EGFR African American 48.8 (>60); EGFR Non-African American 40.3 (>60); Potassium 3.7 mmol/L (3.5-5.0)
[2019-09-05 07:47] LABS: Microcytosis 2+
[2019-09-05 07:48] LABS: ABS Lymphocytes 0.1 10^3/ul (1.0-4.8); ABS Monocytes 0.7 10^3/ul (0-0.8); ABS Neutrophils 8.3 10^3/ul (1.5-7.7); Eosinophil % 0.1 %; Lymphocyte % 1.6 %
[2019-09-05] MEDS: NS 0.9% IV SCH ×3 (10:16→12:05)
[2019-09-05] MEDS: Nicotine PATCH 14 MG/24 HR PATCH TRANSDERM SCH (10:24)
[2019-09-05 10:36] LABS: Hematocrit 31 % (35-47); Hemoglobin 10.4 g/dL (12.0-16.0); Mean Corpuscular HGB Conc 33 g/dL (31-36); Mean Corpuscular Hemoglobin 31 pg (27-31); Mean Corpuscular Volume 93 fL (80-97); Mean Platelet Volume 8.5 fL (7.4-10.4); Platelet Count 180 10^3/uL (150-450); Red Blood Count 3.36 10^6 /uL (3.70-4.87); Red Cell Distribution Width 14 % (10-15); White Blood Count 8.3 10^3/uL (3.5-10.8)
[2019-09-05 10:53] LABS: Albumin 2.6 g/dL (3.2-5.2); Albumin/Globulin Ratio 1.2 (1-3); BUN/Creatinine Ratio 11.1 (8-20); Calcium 7.2 mg/dL (8.6-10.3); EGFR African American 41.6 (>60); EGFR Non-African American 34.4 (>60); Globulin 2.1 g/dL (2-4); Total Bilirubin 0.3 mg/dL (0.2-1.0); Total Protein 4.7 g/dL (6.4-8.9)
[2019-09-05] MEDS ORDERED: Cefepime 2 GM in Dextrose 2 GM/50 ML BAG IV SCH (11:00)
[2019-09-05 11:29] LABS: ABS Lymphocytes 0.3 10^3/ul (1.0-4.8); ABS Monocytes 0.5 10^3/ul (0-0.8); ABS Neutrophils 7.4 10^3/ul (1.5-7.7); Eosinophil % 0.5 %; Lymphocyte % 3.8 %; Nucleated Red Blood Cells % 0.1
[2019-09-05 11:54] LABS: Urine Appearance Cloudy; Urine Bilirubin Negative (Negative); Urine Blood 2+ (Negative); Urine Color Yellow; Urine Glucose Negative (Negative); Urine Ketones Negative (Negative); Urine Nitrite Negative (Negative); Urine Protein 2+(100 mg/dL) (Negative); Urine Specific Gravity 1.005 (1.010-1.030); Urine Urobilinogen Negative (Negative)
[2019-09-05 11:56] LABS: Urine Bacteria Absent (Absent); Urine Red Blood Cell 2+(6-10/hpf) (Absent); Urine Squamous Epithelial Cell Present (Absent); Urine White Blood Cell 3+(>20/hpf) (Absent)
[2019-09-05] MEDS ORDERED: Meropenem 1 GM PREMIX(*) 1 GM/50 ML BAG IV SCH (12:00)
[2019-09-05 13:31] LABS: Hepatitis B Surface Antigen Nonreactive (Nonreactive)
[2019-09-05 13:36] LABS: Hepatitis A Ab IgM Negative (Negative)
[2019-09-05 13:37] LABS: Hepatitis B Core IgM Nonreactive (Nonreactive)
[2019-09-05 13:38] LABS: Activated Partial Thrombo Time 33.2 seconds (26.0-38.0); Fibrinogen 471.3 mg/dL (110.8-404.3)
[2019-09-05 13:48] LABS: Hepatitis C Antibody Negative (Negative)
[2019-09-05] MEDS ORDERED: fentaNYL 100 mcg/2 ml 50 MCG/ML VIAL ONE ×2 (14:06→14:10)
[2019-09-05] MEDS: fentaNYL 100 mcg/2 ml 50 MCG/ML VIAL IV SLOW PU PRN ×4 (14:13→22:01)
[2019-09-05] MEDS ORDERED: cefTRIAXone 1 gm/50 mL NS BAG 1 GM/50 ML BAG IVPB SCH (23:00)
[2019-09-06] MEDS ORDERED: cefTRIAXone 1 gm/50 mL NS BAG 1 GM/50 ML BAG IVPB SCH
[2019-09-06] MEDS ORDERED: Meropenem 1 GM PREMIX(*) 1 GM/50 ML BAG IV SCH
[2019-09-06] MEDS: fentaNYL 100 mcg/2 ml 50 MCG/ML VIAL IV SLOW PU PRN ×4 (01:17→09:11)
[2019-09-06 05:49] LABS: ABS Eosinophils 0.1 10^3/ul (0-0.6); ABS Lymphocytes 0.4 10^3/ul (1.0-4.8); ABS Monocytes 0.8 10^3/ul (0-0.8); ABS Neutrophils 8.2 10^3/ul (1.5-7.7); Eosinophil % 0.7 %; Hematocrit 31 % (35-47); Hemoglobin 10.5 g/dL (12.0-16.0); Lymphocyte % 3.9 %; Mean Corpuscular HGB Conc 34 g/dL (31-36); Mean Corpuscular Hemoglobin 32 pg (27-31); Mean Corpuscular Volume 93 fL (80-97); Mean Platelet Volume 8.3 fL (7.4-10.4); Platelet Count 207 10^3/uL (150-450); Red Cell Distribution Width 14 % (10-15); White Blood Count 9.5 10^3/uL (3.5-10.8)
[2019-09-06 06:00] LABS: INR 2.47 (0.82-1.09)
[2019-09-06 06:06] LABS: Albumin 2.4 g/dL (3.2-5.2); BUN/Creatinine Ratio 13.5 (8-20); Calcium 6.6 mg/dL (8.6-10.3); EGFR African American 46.1 (>60); EGFR Non-African American 38.1 (>60); Globulin 2.3 g/dL (2-4); Magnesium 1.5 mg/dL (1.9-2.7); Phosphorus 2.2 mg/dL (2.5-5.0); Potassium 3.5 mmol/L (3.5-5.0); Total Bilirubin 0.2 mg/dL (0.2-1.0); Total Protein 4.7 g/dL (6.4-8.9)
[2019-09-06] MEDS: Nicotine PATCH 14 MG/24 HR PATCH TRANSDERM SCH (07:56)
[2019-09-06] MEDS ORDERED: Magnesium Sulfate 2 gm BAG 2 GM/50 ML BAG IVPB ONE (08:00)
[2019-09-06] MEDS ORDERED: NS 0.9% 100 ml BAG 100 ML ONE (09:06)
[2019-09-06] MEDS ORDERED: Thiamine 100 MG/ML 2 ml VIAL (200 mg) IM ONE (09:47)
[2019-09-06] MEDS ORDERED: Lorazepam PYXIS KEY PRN (09:57)
[2019-09-06] MEDS ORDERED: Lactated Ringers 1000 ml BAG 1,000 ML IV SCH (10:00)
[2019-09-06] MEDS ORDERED: Phytonadione Oral Solution 5 MG/25 ML UDC PO ONE (10:00)
[2019-09-06] MEDS ORDERED: LORazepam 2 mg VIAL 1 ml IV PUSH SCH (10:00)
[2019-09-06] MEDS: Multivitamins/Minerals TAB PO SCH (10:13)
[2019-09-06] MEDS: cefTRIAXone 2 GM ADDV.VIAL 2 GM in NS 0.9% 100 ml BAG 100 ML IV SCH (10:13)
[2019-09-06] MEDS: Lactated Ringers 1000 ml BAG 1,000 ML IV SCH ×2 (10:28→23:44)
[2019-09-06] MEDS ORDERED: Potassium Phosphate IV 20 MMOLE in NS 0.9% 250 ml 250 ML IVPB ONE (10:30)
[2019-09-06] MEDS: Ondansetron 4 mg VIAL 2 MG/ML 2 ml VIAL IV PRN (16:41)
[2019-09-06] MEDS: Prochlorperazine 5 mg/ml 2 ml VIAL (10 mg) IV PRN (21:22)
[2019-09-07] MEDS ORDERED: Magnesium Sulfate IV 1 GM in NS 0.9% 100 ml BAG 100 ML IVPB ONE (07:50)
[2019-09-07] MEDS ORDERED: Magnesium Sulfate IV 3 GM in NS 0.9% 100 ml BAG 100 ML IVPB ONE (07:50)
[2019-09-07] MEDS: Nicotine PATCH 14 MG/24 HR PATCH TRANSDERM SCH (08:45)
[2019-09-07] MEDS: Multivitamins/Minerals TAB PO SCH (08:46)
[2019-09-07] MEDS: cefTRIAXone 2 GM ADDV.VIAL 2 GM in NS 0.9% 100 ml BAG 100 ML IV SCH (08:48)
[2019-09-07 09:52] LABS: Urine Appearance Cloudy; Urine Bilirubin Negative (Negative); Urine Blood 1+ (Negative); Urine Color Straw; Urine Glucose Negative (Negative); Urine Ketones Negative (Negative); Urine Nitrite Negative (Negative); Urine Protein Negative (Negative); Urine Specific Gravity 1.004 (1.010-1.030); Urine Urobilinogen Negative (Negative)
[2019-09-07 10:00] LABS: Urine Bacteria 1+ (Absent); Urine Red Blood Cell 1+(3-5/hpf) (Absent); Urine Squamous Epithelial Cell Present (Absent); Urine White Blood Cell 2+(11-20/hpf) (Absent)
[2019-09-07 10:25] LABS: Hematocrit 31 % (35-47); Hemoglobin 10.6 g/dL (12.0-16.0); Mean Corpuscular HGB Conc 34 g/dL (31-36); Mean Corpuscular Hemoglobin 32 pg (27-31); Mean Corpuscular Volume 92 fL (80-97); Mean Platelet Volume 8.1 fL (7.4-10.4); Platelet Count 236 10^3/uL (150-450); Red Blood Count 3.34 10^6 /uL (3.70-4.87); Red Cell Distribution Width 15 % (10-15); White Blood Count 7.4 10^3/uL (3.5-10.8)
[2019-09-07 10:30] LABS: INR 1.55 (0.82-1.09)
[2019-09-07 10:43] LABS: ALT 22 U/L (7-52); AST 19 U/L (13-39); Albumin 2.5 g/dL (3.2-5.2); Alkaline Phosphatase 53 U/L (34-104); Anion Gap 5 mmol/L (2-11); BUN/Creatinine Ratio 10.4 (8-20); Blood Urea Nitrogen 13 mg/dL (6-24); CO2 Carbon Dioxide 22 mmol/L (22-32); Calcium 7.6 mg/dL (8.6-10.3); Chloride 110 mmol/L (101-111); EGFR African American 56.1 (>60); EGFR Non-African American 46.3 (>60); Globulin 2.6 g/dL (2-4); Glucose 120 mg/dL (70-100); Magnesium 1.9 mg/dL (1.9-2.7); Potassium 3.5 mmol/L (3.5-5.0); Sodium 137 mmol/L (135-145); Total Protein 5.1 g/dL (6.4-8.9)
[2019-09-07 10:50] LABS: ABS Eosinophils 0.1 10^3/ul (0-0.6); ABS Lymphocytes 0.7 10^3/ul (1.0-4.8); ABS Monocytes 0.8 10^3/ul (0-0.8); ABS Neutrophils 5.8 10^3/ul (1.5-7.7); Eosinophil % 1.9 %; Lymphocyte % 8.9 %; Nucleated Red Blood Cells % 0.2
[2019-09-07 11:22] LABS: Folate > 20.00 ng/mL (>3.99)
[2019-09-07 11:25] LABS: Vitamin B12 > 1450 pg/mL (180-914)
[2019-09-07] MEDS ORDERED: Magnesium Sulfate IV 1GM/100ML 1 GM/100 ML BAG IV ONE (13:00)
[2019-09-07] MEDS: Lactated Ringers 1000 ml BAG 1,000 ML IV SCH (16:00)
[2019-09-07] MEDS: Prochlorperazine 5 mg/ml 2 ml VIAL (10 mg) IV PRN (22:19)
[2019-09-08] MEDS: Ondansetron 4 mg VIAL 2 MG/ML 2 ml VIAL IV PRN (01:45)
[2019-09-08 07:01] LABS: ABS Eosinophils 0.1 10^3/ul (0-0.6); ABS Lymphocytes 0.9 10^3/ul (1.0-4.8); ABS Neutrophils 4.3 10^3/ul (1.5-7.7); Eosinophil % 2.1 %; Hematocrit 29 % (35-47); Hemoglobin 10.2 g/dL (12.0-16.0); Lymphocyte % 14.1 %; Mean Corpuscular HGB Conc 35 g/dL (31-36); Mean Corpuscular Hemoglobin 32 pg (27-31); Mean Corpuscular Volume 91 fL (80-97); Mean Platelet Volume 8.3 fL (7.4-10.4); Nucleated Red Blood Cells % 0.1; Platelet Count 247 10^3/uL (150-450); Red Blood Count 3.23 10^6 /uL (3.70-4.87); Red Cell Distribution Width 14 % (10-15); White Blood Count 6.4 10^3/uL (3.5-10.8)
[2019-09-08 07:07] LABS: INR 1.63 (0.82-1.09)
[2019-09-08 07:20] LABS: Albumin 2.7 g/dL (3.2-5.2); BUN/Creatinine Ratio 9.8 (8-20); Calcium 7.8 mg/dL (8.6-10.3); EGFR African American 63.7 (>60); EGFR Non-African American 52.6 (>60); Globulin 2.7 g/dL (2-4); Magnesium 1.6 mg/dL (1.9-2.7); Potassium 3.8 mmol/L (3.5-5.0); Total Bilirubin 0.3 mg/dL (0.2-1.0); Total Protein 5.4 g/dL (6.4-8.9)
[2019-09-08] MEDS ORDERED: Magnesium Sulfate 2 gm BAG 2 GM/50 ML BAG IVPB ONE (07:35)
[2019-09-08 07:42] VITALS: BP 125/76
[2019-09-08] MEDS: cefTRIAXone 2 GM ADDV.VIAL 2 GM in NS 0.9% 100 ml BAG 100 ML IV SCH (08:06)
[2019-09-08] MEDS: Multivitamins/Minerals TAB PO SCH (08:11)
[2019-09-08] MEDS: Nicotine PATCH 14 MG/24 HR PATCH TRANSDERM SCH (08:12)
== END 2019-09-08 10:01 | disposition home or self-care (01) | DRG 720 ==
LOC: ED 21:55 → SSU 09-05 00:48 → ICU 09-05 10:58 → MEDTELE 09-06 09:48
PROVIDERS: ADMIT Hospitalist; ATTEND Internal Medicine